=== PATIENT | male | born 1995 | race Caucasian/White ===

== ENCOUNTER 2017-04-29 13:57 | Emergency (ER) | payer OTHER ==
[~2017-04-29] VITALS: Ht 170.2 cm; Wt 61.4 kg
[2017-04-29 15:10] LABS: BASO % 0.6 % (0.0-2.0); EOS % 0.6 % (0-4.0); GRAN # 4.9 (1.4-6.5); GRAN % 79.4 % (42.2-75.2); HEMATOCRIT 43.9 % (36.0-47.0); HEMOGLOBIN 15.4 g/dl (12.5-16.1); LYMPH # 0.5 (1.2-3.4); LYMPH % 7.6 % (20.0-51.0); MEAN CELL VOLUME 88 fl (80.0-95.0); MEAN CORPUSCULAR HEMOGLOBIN 31 pg (26.0-32.0); MEAN CORPUSCULAR HGB CONC 35 g/dl (33.0-37.0); MEAN PLATELET VOLUME 10.4 fl (7.4-10.4); MONO # 0.7 (0.1-0.6); MONO % 11.6 % (1.7-9.3); PLATELET COUNT 165 K/mm3 (130-400); RED BLOOD COUNT 4.97 M/mm3 (4.20-5.60); REDCELL DISTRIBUTION WIDTH-CV 11.3 % (11.5-14.5)
[2017-04-29 15:24] LABS: ALBUMIN 4.5 gm/dL (3.5-5.0); BILIRUBIN,TOTAL 0.8 mg/dL (0.0-1.0); CALCIUM 9.4 mg/dL (8.4-10.2); CREATININE, serum 0.9 mg/dL (0.66-1.25); POTASSIUM 3.7 mmol/L (3.4-5.0); TOTAL PROTEIN 7.7 gm/dL (6.4-8.2)
[2017-04-29 15:26] LABS: INFLUENZA A NEGATIVE; INFLUENZA B NEGATIVE
[2017-04-29] MEDS ORDERED: ZOFRAN ODT4 MG PO (15:40)
[2017-04-29 15:41] VITALS: TEMP 101.8
[2017-04-29 16:37] VITALS: BP 134/72; PULSE 97
== END 2017-04-29 16:50 | disposition home or self-care (01) ==
LOC: COL.ER 13:57
PROVIDERS: Emergency Medicine
DX: J11.1 Influenza due to unidentified influenza virus with other respiratory manifestations (principal)
CPT/HCPCS: J1885; J2405; J7030